=== PATIENT | female | born 1945 | race Caucasian/White ===

== ENCOUNTER 2021-01-08 22:53 | Outpatient (CLI) | payer MEDICARE, MEDICAID | END 2021-01-08 22:54 | disposition critical access hospital (66) | LOC: EMS 22:53 | DX: R05 Cough (principal); R11.10 Vomiting, unspecified; R53.83 Other fatigue | CPT/HCPCS: A0425; A0429 ==

== ENCOUNTER 2021-01-08 23:17 | Inpatient (IN) | payer MEDICARE, MEDICAID ==
[2021-01-08] MEDS ORDERED: PIPERACILLIN/TAZOBACTAM 4.5 GM in SODIUM CHLORIDE 0.9% MINIBAG 100 ML IV STA (23:27)
[2021-01-08] MEDS ORDERED: SODIUM CHLORIDE 0.9% 500 ML IV STA (23:28)
[2021-01-08] MEDS ORDERED: ACETAMINOPHEN 650 MG SUPP PR STA (23:29)
--- NOTE | 2021-01-08 23:30 | ED Physician Documentation ---
History of Present Illness - Stated complaint Stated Complaint: DECREASED LOC, FEVER, COUGH, VOMITING - Chief complaint Chief Complaint: General - History obtained from History obtained from: Patient - Additonal information Additional information: 75-year-old woman with past medical history of seizure disorder, wheelchair- bound secondary to spinal surgery several years ago, also with hypothyroidism, hyperlipidemia, Covid back in April (fully vaccinated), presents with cough over the past couple of weeks worsening over the past 2 days associated with fever today and 3 episodes of nonbloody nonbilious nausea and vomiting this evening. Patient was acting lethargic so her power of trademark attorney called EMS. Upon arrival her temp was 104 and she was 82% on room air improving to 99% on 4 L of oxygen. Fingerstick on scene normal. Patient ANO x3 in the emergency department stating that she has diffuse body aches but not complaining of discrete abdominal pain or diarrhea. Does endorse productive cough. Her power of trademark attorney is concerned that she had an aspiration event in the hospital 2 weeks ago when she had all of her teeth extracted. She states that she may have aspirated since that time as well. Note that patient normally gets her care at the [facility] in [place]. Review of Systems Ten Systems: 10 systems reviewed and negative Constitutional: reports: Fever, Chills, Myalgias, Fatigue Cardiac: denies: Chest pain / pressure Respiratory: reports: Dyspnea, Cough GI: reports: Nausea, Vomiting. denies: Abdominal Pain, Diarrhea PD PAST MEDICAL HISTORY - Present Medications Home Medications: Ambulatory Orders Medication Instructions Recorded Confirmed Atorvastatin Calcium 40 mg PO DAILY 01/09/21 01/09/21 Divalproex [Stephanie Humphreys] 250 mg PO DAILY 01/09/21 01/09/21 Levetiracetam [Keppra] 1,000 mg PO BID 01/09/21 01/09/21 Levetiracetam [Keppra] 500 mg PO BID 01/09/21 01/09/21 Levothyroxine Sodium 125 mcg PO DAILY 01/09/21 01/09/21 [Levothyroxine] Mirabegron [Myrbetriq] 50 mg PO DAILY 01/09/21 01/09/21 Solifenacin Succinate [Vesicare] 10 mg PO DAILY 01/09/21 01/09/21 Tolterodine [Detrol LA] 4 mg PO DAILY 01/09/21 01/09/21 - Allergies Allergies/Adverse Reactions: Allergies Allergy/AdvReac Type Severity Reaction Status Date / Time alendronate sodium Allergy Unknown Verified 01/09/21 00:01 [From Fosamax] phenobarbital Allergy Unknown Verified 01/09/21 00:01 prednisone Allergy Unknown Verified 01/09/21 00:01 Sulfa (Sulfonamide Allergy Unknown Verified 01/09/21 00:01 Antibiotics) Tetanus Vaccines and Toxoid Allergy Unknown Verified 01/09/21 00:01 PD ED PE NORMAL - Vitals Vital signs reviewed: Yes - General General: Alert and oriented X 3, Other (Slow to respond, uncomfortable appearing) - HEENT HEENT: Atraumatic, PERRL, EOMI, Moist mucous membranes, Pharynx benign - Neck Neck: Supple, no meningeal sign - Cardiac Cardiac: Other (Borderline tachycardic rate, regular rhythm) - Respiratory Respiratory: Other (Coarse breath sounds bilaterally. Mild Tachypnea) - Abdomen Abdomen: Non tender, Non distended - Derm Derm: Normal color, Warm and dry - Extremities Extremities: No deformity - Neuro Neuro: Alert and oriented X 3 - Psych Psych: Normal mood, Normal affect Results - Vitals Vitals: Vital Signs - 24 hr 01/08/21 01/08/21 01/08/21 23:21 23:30 23:54 Temperature 39.4 C H 39.9 C H Heart Rate 105 H 102 H Respiratory 27 H 20 Rate Blood Pressure 102/51 L 104/53 L O2 Saturation 96 84 L 95 01/09/21 01/09/21 01/09/21 00:01 00:22 00:23 Temperature Heart Rate 100 107 H 107 H Respiratory 20 13 20 Rate Blood Pressure 94/51 L 102/53 L 102/53 L O2 Saturation 96 97 99 01/09/21 01/09/21 01/09/21 00:30 01:04 01:30 Temperature 38.7 C H 37.9 C Heart Rate 100 98 98 Respiratory 23 16 15 Rate Blood Pressure 103/49 L 101/57 L 91/56 L O2 Saturation 96 98 98 01/09/21 01/09/21 01/09/21 01:34 02:00 02:29 Temperature 37.9 C 37.9 C Heart Rate 92 93 Respiratory 15 17 Rate Blood Pressure 89/58 L 95/49 L O2 Saturation 100 100 01/09/21 01/09/21 02:49 02:57 Temperature Heart Rate 89 90 Respiratory 17 16 Rate Blood Pressure O2 Saturation 97 100 Oxygen O2 Source Nasal cannula - Labs Labs: Laboratory Tests 01/08/21 01/08/21 01/08/21 01:30 23:30 23:30 WBC 4.2 L RBC 3.05 L Hgb 10.6 L Hct 32.6 L MCV 106.9 H MCH 34.8 H MCHC 32.5 RDW 13.2 Plt Count 103 L MPV 10.0 Neut # (Auto) 2.7 Lymph # (Auto) 1.1 L Carver # (Auto) 0.3 Eos # (Auto) 0.1 Baso # (Auto) 0.0 Absolute Nucleated RBC 0.00 Nucleated RBC % 0.0 VBG pH VBG pCO2 VBG pO2 VBG HCO3 VBG Total CO2 VBG O2 Saturation VBG Base Excess Sodium 134 L Potassium 4.3 Chloride 94 L Carbon Dioxide 28 Anion Gap 12.0 BUN 15 Creatinine 0.8 Estimated GFR (MDRD) 70 L Glucose 124 H Lactic Acid Calcium 8.9 Total Bilirubin 0.7 AST 23 ALT < 10 L Alkaline Phosphatase 42 Total Protein 5.9 L Albumin 3.3 Globulin 2.6 Albumin/Globulin Ratio 1.3 Urine Color YELLOW Urine Clarity SL. CLOUDY Urine pH 5.0 Ur Specific [place] 1.025 Urine Protein 30 H Urine Glucose (UA) NEGATIVE Urine Ketones 15 H Urine Occult Blood LARGE H Urine Nitrite NEGATIVE Urine Bilirubin NEGATIVE Urine Urobilinogen 0.2 (NORMAL) Ur Leukocyte Esterase NEGATIVE Urine RBC 6-10 H Urine WBC 0-3 Ur Squamous Epith Cells MOD Squamous H Amorphous Sediment Moderate Urine Bacteria Rare Urine Culture Comments NOT INDICATED Nasal Adenovirus (PCR) Nasal B. parapertussis DNA (PCR) Nasal Coronavir 229E PCR Nasal Coronavir HKU1 PCR Nasal Coronavir NL63 PCR Nasal Coronavir OC43 PCR Nasal Enterovir/Rhinovir PCR Nasal Influenza B PCR Nasal Influenza A PCR Nasal Parainfluen 1 PCR Nasal Parainfluen 2 PCR Nasal Parainfluen 3 PCR Nasal Parainfluen 4 PCR Nasal RSV (PCR) Nasal B.pertussis DNA PCR Nasal C.pneumoniae (PCR) Santos Human Metapneumo PCR Nasal M.pneumoniae (PCR) Nasal SARS-CoV-2 (PCR) 01/08/21 01/08/21 01/08/21 23:30 23:30 23:30 WBC RBC Hgb Hct MCV MCH MCHC RDW Plt Count MPV Neut # (Auto) Lymph # (Auto) Carver # (Auto) Eos # (Auto) Baso # (Auto) Absolute Nucleated RBC Nucleated RBC % VBG pH 7.368 VBG pCO2 53.9 H VBG pO2 26.9 VBG HCO3 30.3 H VBG Total CO2 32.0 H VBG O2 Saturation 48.5 L VBG Base Excess 4.0 H Sodium Potassium Chloride Carbon Dioxide Anion Gap BUN Creatinine Estimated GFR (MDRD) Glucose Lactic Acid 1.3 Calcium Total Bilirubin AST ALT Alkaline Phosphatase Total Protein Albumin Globulin Albumin/Globulin Ratio Urine Color Urine Clarity Urine pH Ur Specific [place] Urine Protein Urine Glucose (UA) Urine Ketones Urine Occult Blood Urine Nitrite Urine Bilirubin Urine Urobilinogen Ur Leukocyte Esterase Urine RBC Urine WBC Ur Squamous Epith Cells Amorphous Sediment Urine Bacteria Urine Culture Comments Nasal Adenovirus (PCR) NOT DETECTED Nasal B. parapertussis DNA (PCR) NOT DETECTED Nasal Coronavir 229E PCR NOT DETECTED Nasal Coronavir HKU1 PCR NOT DETECTED Nasal Coronavir NL63 PCR NOT DETECTED Nasal Coronavir OC43 PCR NOT DETECTED Nasal Enterovir/Rhinovir PCR NOT DETECTED Nasal Influenza B PCR NOT DETECTED Nasal Influenza A PCR NOT DETECTED Nasal Parainfluen 1 PCR NOT DETECTED Nasal Parainfluen 2 PCR NOT DETECTED Nasal Parainfluen 3 PCR NOT DETECTED Nasal Parainfluen 4 PCR NOT DETECTED Nasal RSV (PCR) NOT DETECTED Nasal B.pertussis DNA PCR NOT DETECTED Nasal C.pneumoniae (PCR) NOT DETECTED Santos Human Metapneumo PCR NOT DETECTED Nasal M.pneumoniae (PCR) NOT DETECTED Nasal SARS-CoV-2 (PCR) NOT DETECTED PD MEDICAL DECISION MAKING - ED course ED course: Upon arrival I have a high suspicion for sepsis in this patient. Given that she has been coughing more than usual, respiratory etiology is most likely. Suspect possible Covid vs pneumonia despite patient being vaccinated. Will give slow IVF for now. Heart rate improved status post IV fluids. antibiotics going in now . CXR concerning for pneumonia. also with appearance of intestinal contents in R hemidiaphragm,, with recommendation by radiology to obtain CT AP> CTAP "pseudopneumoperitoneum" with benign abdominal contents, but with BL LL PNA. d/w patient's POA Lynn [phone]. ordered DVT study BL LE per Dr Zhao request which was negative. admitted to medicine. Departure - Departure Disposition: 66 [facility] DC/Xfer Clinical Impression: Pneumonia, Cough, Shortness of breath, Anemia Condition: Stable
[2021-01-08 23:40] LABS: VBG HCO3 30.3 mmol/L (23-28); VBG OXYGEN SATURATION 48.5 % (60-80); VBG PCO2 53.9 mmHg (41-51); VBG PH 7.368 (7.31-7.41); VBG PO2 26.9 mmHg (25-47)
[2021-01-08 23:41] LABS: BASOPHILS % (AUTO) 0.2 %; EOSINOPHILS # (AUTO) 0.1 10^3/uL (0.0-0.7); EOSINOPHILS % (AUTO) 1.7 %; HCT - HEMATOCRIT 32.6 % (37.0-47.0); HGB - HEMOGLOBIN 10.6 g/dL (12.0-16.0); LYMPHOCYTES # (AUTO) 1.1 10^3/uL (1.5-3.5); LYMPHOCYTES % (AUTO) 25.3 %; MEAN CORPUSCULAR HEMOGLOBIN 34.8 pg (27.0-31.0); MEAN CORPUSCULAR HGB CONC 32.5 g/dL (32.0-36.0); MEAN CORPUSCULAR VOLUME 106.9 fL (81.0-99.0); MONOCYTES # (AUTO) 0.3 10^3/uL (0.0-1.0); MONOCYTES % (AUTO) 7.4 %; NEUTROPHILS # (AUTO) 2.7 10^3/uL (1.5-6.6); NEUTROPHILS % (AUTO) 65.4 %; PLT - PLATELET COUNT 103 10^3/uL (130-450); RED BLOOD COUNT 3.05 10^6/uL (4.20-5.40); RED CELL DISTRIBUTION WIDTH 13.2 % (12.0-15.0); WHITE BLOOD COUNT 4.2 x10^3/uL (4.8-10.8)
[2021-01-08 23:52] LABS: ALBUMIN 3.3 g/dL (3.2-5.5); ALBUMIN/GLOBULIN RATIO 1.3 (1.0-2.2); ALKALINE PHOSPHATASE 42 IU/L (42-121); ALT ALANINE AMINOTRANSFERASE < 10 IU/L (10-60); AST ASPARTATE AMINOTRANSFERASE 23 IU/L (10-42); BILIRUBIN,TOTAL 0.7 mg/dL (0.2-1.0); BUN - BLOOD UREA NITROGEN 15 mg/dL (6-20); CALCIUM 8.9 mg/dL (8.5-10.3); CARBON DIOXIDE - CO2 28 mmol/L (21-32); CHLORIDE 94 mmol/L (101-111); CREATININE 0.8 mg/dL (0.4-1.0); GFR - MDRD 70 (>89); GLUCOSE 124 mg/dL (70-100); POTASSIUM 4.3 mmol/L (3.5-5.0); SODIUM 134 mmol/L (135-145); TOTAL PROTEIN 5.9 g/dL (6.7-8.2)
[2021-01-09] MEDS ORDERED: VANCOMYCIN INJ 1.75 GM in SODIUM CHLORIDE 0.9% 500 ML IV STA (00:01)
[2021-01-09] MEDS ORDERED: VANCOMYCIN 1 GM VIAL ONE (00:08)
[2021-01-09 00:29] LABS: CORONAVIRUS 229E-RESP PCR NOT DETECTED
[2021-01-09 00:30] LABS: B. PARAPERTUSSIS- RESP PCR PAN NOT DETECTED; B. PERTUSSIS- RESP PCR PANEL NOT DETECTED; C. PNEUMONIAE- RESP PCR PANEL NOT DETECTED; CORONAVIRUS HKU1-RESP PCR NOT DETECTED; CORONAVIRUS NL63-RESP PCR NOT DETECTED; CORONAVIRUS OC43-RESP PCR NOT DETECTED; HUMAN METAPNEUMOVIRUS NOT DETECTED; INFLUENZA A- RESP PCR PANEL NOT DETECTED; INFLUENZA B - RESP PCR PANEL NOT DETECTED; M. PNEUMONIAE- RESP PCR PANEL NOT DETECTED; PARAINFLUENZA VIRUS 1 NOT DETECTED; PARAINFLUENZA VIRUS 2 NOT DETECTED; PARAINFLUENZA VIRUS 3 NOT DETECTED; PARAINFLUENZA VIRUS 4 NOT DETECTED; RHINOVIRUS/ENTEROVIRUS NOT DETECTED; RSV- RESP PCR PANEL NOT DETECTED; SARS-CoV-2 -RESP PCR PANEL NOT DETECTED
[2021-01-09] MEDS ORDERED: SODIUM CHLORIDE 0.9% 1,500 ML IV STA (00:54)
[2021-01-09] MEDS ORDERED: PANTOPRAZOLE 40 MG VIAL IV STA (00:55)
[2021-01-09] MEDS ORDERED: IOPAMIDOL-300 50 ML VIAL ONE (00:58)
[2021-01-09 01:37] LABS: BILIRUBIN,URINE NEGATIVE (NEGATIVE); GLUCOSE, URINE (UA) NEGATIVE (NEGATIVE); KETONES,URINE (UA) 15 mg/dL (NEGATIVE); LEUKOCYTE ESTERASE, URINE NEGATIVE (NEGATIVE); NITRITE,URINE NEGATIVE (NEGATIVE); OCCULT BLOOD,URINE LARGE (NEGATIVE); PROTEIN,URINE 30 mg/dL (NEGATIVE); UROBILINOGEN,URINE 0.2 (NORMAL) E.U./dL (NORMAL)
[2021-01-09] MEDS ORDERED: IOPAMIDOL-300 50 ML VIAL PO ONE (01:37)
[2021-01-09 01:38] LABS: CLARITY,URINE SL. CLOUDY (CLEAR)
[2021-01-09 01:43] LABS: AMORPHOUS SEDIMENT,UR Moderate /LPF; BACTERIA,URINE Rare /HPF (None Seen); SQUAMOUS EPITHELIAL CELL,UR MOD Squamous (<= Few); WBC,URINE 0-3 /HPF (0-5)
[2021-01-09] MEDS ORDERED: SODIUM CHLORIDE 0.9% 500 ML IV STA (02:32)
[2021-01-09] MEDS ORDERED: SODIUM CHLORIDE 0.9% 1,000 ML IV STA (03:03)
[2021-01-09] MEDS ORDERED: SODIUM CHLORIDE FLUSH 0.9% 10 ML SYRINGE IVP PRN (03:04)
[2021-01-09] MEDS ORDERED: ONDANSETRON 4 MG/2 ML VIAL IVP PRN (03:04)
[2021-01-09] MEDS ORDERED: ACETAMINOPHEN 325 MG TABLET PO PRN (03:04)
[2021-01-09] MEDS ORDERED: PIPERACILLIN/TAZOBACTAM 3.375 GM in SODIUM CHLORIDE 0.9% MINIBAG 100 ML IV SCH (04:00)
[2021-01-09] MEDS: LACTATED RINGERS 1,000 ML IV SCH ×2 (04:24→16:52)
[2021-01-09] MEDS: metroNIDAZOLE 500 MG/100 ML 500 MG/100 ML BAG IV SCH ×3 (04:24→20:46)
[2021-01-09] MEDS: levoFLOXacin 750 MG/150 ML 750 MG/150 ML BAG IV SCH (04:40)
[2021-01-09 05:28] LABS: BASOPHILS % (AUTO) 0.3 %; EOSINOPHILS # (AUTO) 0.1 10^3/uL (0.0-0.7); HCT - HEMATOCRIT 28.4 % (37.0-47.0); HGB - HEMOGLOBIN 8.9 g/dL (12.0-16.0); LYMPHOCYTES # (AUTO) 0.9 10^3/uL (1.5-3.5); LYMPHOCYTES % (AUTO) 13.8 %; MEAN CORPUSCULAR HEMOGLOBIN 34.2 pg (27.0-31.0); MEAN CORPUSCULAR HGB CONC 31.3 g/dL (32.0-36.0); MEAN CORPUSCULAR VOLUME 109.2 fL (81.0-99.0); MEAN PLATELET VOLUME 10.4 fL (7.9-10.8); MONOCYTES # (AUTO) 0.9 10^3/uL (0.0-1.0); MONOCYTES % (AUTO) 14.4 %; NEUTROPHILS # (AUTO) 4.4 10^3/uL (1.5-6.6); NEUTROPHILS % (AUTO) 69.2 %; PLT - PLATELET COUNT 86 10^3/uL (130-450); RED CELL DISTRIBUTION WIDTH 13.2 % (12.0-15.0); WHITE BLOOD COUNT 6.4 x10^3/uL (4.8-10.8)
[2021-01-09 05:35] LABS: CALCIUM 8.2 mg/dL (8.5-10.3); CREATININE 0.8 mg/dL (0.4-1.0); MAGNESIUM 1.8 mg/dL (1.7-2.8)
--- NOTE | 2021-01-09 06:55 | HISTORY & PHYSICAL EXAMINATION ---
Chief Complaint - Chief Complaint Chief Complaint: Cough and chills. History of Present Illness - Admitted From Admitted From:: Home - History Obtained From Records Reviewed: Yes History obtained from: Patient, Patient's frined (Lynn), ER Physician, EMR Exam Limitations: Patient is altered and so history is limited. - History of Present Illness HPI Comment/Other: This is a 75-year-old female with past medical history significant for epilepsy, hypothyroidism, chronic back pain who presents complaining of cough and chills. Most of the history is obtained from the patient's friend, Lynn, who is her POA. Lynn tells me that the patient had a dental procedure about 2 weeks ago where she had all of her teeth removed and dentures were placed. She states after the procedure, she had an episode where she aspirated and required to be hospitalized and treated with antibiotics. She tells me the patient has a history of seizures that are usually well controlled but during that aspiration event, the patient also had a seizure but this was different than her usual seizures as it was a generalized tonic-clonic seizure. After being discharged from after a few days, she had been home and was on a strict liquid diet. It was noticed that the patient's appetite had decreased over the past 2 to 3 days and she has had multiple coughing episodes and she was concerned the patient may have continued to aspirate. Yesterday evening, the patient went to sleep at around 5:30 PM due to her chronic back pain and woke up at around 8 PM and was noted to be confused and complaining of chills. Given the change in her mental status, MD called EMS. When he does not the patient was hospitalized back in April 2020 with [facility] at for about 5 days. The patient has since been vaccinated. The patient herself denies any chest pain, dyspnea. She does complain of a cough. She reports no headache, change in vision, neck pain. She complains of back pain throughout her spine. She reports no abdominal pain, nausea, vomiting although Lynn told me that patient did vomit yesterday evening. She also denies dysuria, urgency, hematuria. Lynn to me that she also noticed that the patient's lower extremities were edematous yesterday evening. The patient does have a history of DVT with the most recent being about 10 years ago. It was reportedly after a surgical intervention and so it was considered provoked. Lynn tells me the patient has been wheelchair-bound since a spine surgery in 2018. Here in our emergency department, she was noted to be febrile with a temperature of 39.4 C. She is tachycardic with a heart rate in the 100s. Her blood pressure is 102/51. She was tachypneic and was saturating 84% on room air. This improved to 96% on 4 L of oxygen via nasal cannula. Labs were significant for a white count of 4.2 and platelet count of 103. Her urinalysis was a dirty catch. Respiratory PCR panel was unremarkable. Chest x-ray revealed an elevated right diaphragm without obvious pneumonia. There was concern for potential pneumoperitoneum and so a CT of the abdomen pelvis was obtained which showed that this was likely just pseudopneumoperitoneum as the bowel was overlying the liver. CT did also reveal bilateral lower lobe infiltrates concerning for pneumonia. The patient received vancomycin and Zosyn in the emergency department. I did discuss goals of care with the patient and she states that she would like to be a full code. I also spoke with Lynn regarding this who is reportedly the patient's POA and she also confirmed that the patient is a full code. History - Past Medical History Cardiovascular: reports: Hypertension, Deep vein thrombosis Neuro: reports: Seizure disorder Endocrine/Autoimmune: reports: HyPOthyroidism GI: reports: Chronic constipation : reports: Incontinence Psych: reports: None Musculoskeletal: reports: Osteoarthritis, Chronic back pain MRSA Hx?: No - Past Surgical History Ortho: reports: Hip replacement, Knee replacement, Spine surgery HEENT: reports: Cataracts - Family & Social History Family History Comment/Other: The patient denies any significant family history although she is altered so not sure how accurate this is. Living arrangement: At home Living Situation: With friend(s) Social History Notes: The patient lives in between [place] and [facility] with her friend, Lynn. She denies smoking or alcohol use. - POLST Patient has POLST: No Meds/Allgy - Home Medications Home Medications: Ambulatory Orders Medication Instructions Recorded Confirmed Atorvastatin Calcium 40 mg PO DAILY 01/09/21 01/09/[address] [Depakote Dr] 250 mg PO DAILY 01/09/21 01/09/21 Levetiracetam [Keppra] 1,000 mg PO BID 01/09/21 01/09/21 Levetiracetam [Keppra] 500 mg PO BID 01/09/21 01/09/21 Levothyroxine Sodium 125 mcg PO DAILY 01/09/21 01/09/21 [Levothyroxine] Mirabegron [Myrbetriq] 50 mg PO DAILY 01/09/21 01/09/21 Solifenacin Succinate [Vesicare] 10 mg PO DAILY 01/09/21 01/09/21 Tolterodine [Detrol LA] 4 mg PO DAILY 01/09/21 01/09/21 - Allergies Allergies/Adverse Reactions: Allergies Allergy/AdvReac Type Severity Reaction Status Date / Time alendronate sodium Allergy Unknown Verified 01/09/21 00:01 [From Fosamax] phenobarbital Allergy Unknown Verified 01/09/21 00:01 prednisone Allergy Unknown Verified 01/09/21 00:01 Sulfa (Sulfonamide Allergy Unknown Verified 01/09/21 00:01 Antibiotics) Tetanus Vaccines and Toxoid Allergy Unknown Verified 01/09/21 00:01 Review of Systems - Constitutional Constitutional: reports: Fatigue, Chills, Malaise, Poor appetite. denies: Fever - Eyes Eyes: denies: Blurred vision, Vision loss - Ears, Nose & Throat Ears, Nose & Throat: denies: Nasal discharge, Nasal congestion - Cardiovascular Cariovascular: denies: Chest pain, Exertional dyspnea, Decr. exercise tolerance - Respiratory Respiratory: reports: Cough. denies: Sputum production, SOB at rest, SOB with exertion - Gastrointestinal Gastrointestinal: denies: Abdominal pain, Nausea, Vomiting - Genitourinary Genitourinary: denies: Dysuria, Frequency, Urgency, Hematuria - Musculoskeletal Musculoskeletal: reports: Back pain, Limited range of motion, Muscle weakness - Integumentary Integumentary: denies: Rash - Neurological Neurological: reports: Pre-existing deficit, Abnormal gait. denies: Dizziness, Numbness - Hematologic/Lymphatic Hematologic/Lymphatic: denies: Bleeding tendencies - All Other Systems All Other Systems: reports: Reviewed and negative (Review of systems may be inaccurate given the patient answered "no" to most of them and she is altered.) Prior Level of Functionality: The patient ambulates with a wheelchair at baseline due to her chronic back pain and left foot drop. Exam - Vital Signs Reviewed Vital Signs: Yes Vital Signs: Vital Signs x48h Temp Pulse Pulse Resp BP BP Pulse Ox 01/09/21 05:55 36.9 C 88 12 96 01/09/21 04:10 36.9 C 88 12 102/46 L 96 01/09/21 04:00 99.6 C H 01/09/21 03:33 38.2 C H 87 14 83/49 L 97 01/09/21 03:20 90 14 88/50 L 98 01/09/21 02:57 90 16 100 01/09/21 02:49 89 17 97 01/09/21 02:29 93 17 95/49 L 100 01/09/21 02:00 37.9 C 92 15 89/58 L 100 01/09/21 01:34 37.9 C 01/09/21 01:30 37.9 C 98 15 91/56 L 98 01/09/21 01:04 98 16 101/57 L 98 01/09/21 00:30 38.7 C H 100 23 103/49 L 96 01/09/21 00:23 107 H 20 102/53 L 99 01/09/21 00:22 107 H 13 102/53 L 97 01/09/21 00:01 100 20 94/51 L 96 01/08/21 23:54 39.9 C H 102 H 20 104/53 L 95 01/08/21 23:30 84 L 01/08/21 23:21 39.4 C H 105 H 27 H 102/51 L 96 - Physical Exam General Appearance: positive: Other (She does appear lethargic and in mild to moderate distress. She will open her eyes to answer questions but quickly fall back to sleep) Eyes Bilateral: positive: PERRL, Conjunctivae nml ENT: positive: Dry mucous membranes, Other (Nasal cannula in place.). negative: No signs of dehydration Neck: positive: Nml inspection Respiratory: positive: No respiratory distress, Other (She is not in distress but is somewhat tachypneic with respiratory in the low 20s. She has rhonchi in the bilateral lung morocho.) Cardiovascular: positive: Tachycardia. negative: Irregularly irregular, Bradycardia, Systolic murmur Abdomen: positive: Nml bowel sounds, Tenderness (Mild tenderness in the epigastric region). negative: Guarding, Rebound Back: positive: Other (She has spinal tenderness throughout her thoracic spine down to her lumbar spine.) Skin: positive: Warm, Dry Extremities: positive: Pedal edema (She has +2 pitting edema in the right lower extremity and trace to +1 in the dorsum of the left foot.) Neurologic/Psychiatric: positive: Sensation nml, Other (She is able to move all 4 extremities although the left lower extremity is about 2 out of 5 motor strength which is her baseline.). negative: Disoriented to person, Disoriented to place, Disoriented to time (She is oriented to the year but not to month but Lynn tells me this is not unusual for her.) Sepsis Event Note (H) - Evaluation Current Stage of Sepsis: Sepsis Possible source of Sepsis: positive: Pulmonary - Sepsis Criteria Sepsis Criteria: Recorded Temperature greater than 38.3C or Less than 36C, Recorded Heart Rate greater than 90 bpm, Recorded Respiratory Rate greater than 20, Respiratory: Increasing oxygen requirements, CHEMICAL PROCESS OPERATOR: altered consciousness (unrelated to primary neuro pathology) Conclusion/Plan - Problem List (1) Acute respiratory failure with hypoxia Conclusion/Plan: This is secondary to pneumonia. She was saturating in the mid 80s on room air and required 4 L of oxygen to maintain oxygen saturation of 95%. Although x-ray revealed no obvious infiltrate, CT did reveal bilateral infiltrates and given her history, concern for potential aspiration. Respiratory PCR panel is unremarkable. We will start her on Levaquin and Flagyl and continue with supplemental oxygen for goal saturation greater than 92%. Tessalon as needed for cough. (2) Sepsis Conclusion/Plan: This appears to be secondary to the pneumonia. She presented with a fever, tachycardia, change in mental status. CT revealed bilateral infiltrates concerning for pneumonia and given the history the concern is for potential aspiration. Her urinalysis was a dirty catch but she has not had symptoms of a urinary tract infection. Although she does complain of back pain, per history from her friend, Lynn, this appears to be chronic for the patient. We will start her on Levaquin and Flagyl IV empirically for pneumonia to cover for community-acquired pneumonia as well as aspiration pneumonia. We will follow up blood cultures. (3) Pneumonia Conclusion/Plan: The concern is for potential aspiration pneumonia given the history although this could also be community-acquired pneumonia. Respiratory PCR panel was unremarkable. She is requiring supplemental oxygen as mentioned above. We will start her on Levaquin and Flagyl to cover for community-acquired pneumonia as well as possible aspiration. We will continue supplemental oxygen for goal saturation greater than 92%. If she remains hospitalized until Monday, we will obtain a speech evaluation. (4) Altered mental status Conclusion/Plan: Although she is oriented to self, location, year, she does appear confused and altered compared to her baseline and this was confirmed by her friend, Lynn. Suspect this is related to the sepsis and underlying infection. She has no focal deficits to suggest stroke at this time. We will treat her underlying infection with IV antibiotics and hydrated with IV fluids. Avoid sedatives and we will reassess her neuro status. (5) Bilateral lower extremity edema Conclusion/Plan: She has bilateral lower extremity edema which is much more profound in the right lower extremity edema. Given her history of DVT affect that she is wheelchair- bound, we will order a duplex of the lower extremities to evaluate for DVT. In the interim we will have her on Lovenox for DVT prophylaxis and hold off on SCDs. (6) Thrombocytopenia Conclusion/Plan: Her platelet count was initially 103 and has since decreased to 86. Suspect likely related to sepsis and ongoing infection. We do not have prior labs to compare to so unsure if she is chronically is thrombocytopenic or not. We will continue Lovenox in the interim for DVT prophylaxis but if her platelet count continues to decrease that we will need to discontinue this. (7) Epilepsy Conclusion/Plan: She has a history of epilepsy and is on Keppra and Depakote. We will continue both of these and will consider IV if she has difficulty taking p.o. (8) Chronic back pain Conclusion/Plan: She has chronic back pain which unfortunately after her most recent procedure in 2018, has led to her being quite physically debilitated. She is now predomi nantly wheelchair-bound. She is on meloxicam at home which we will continue along with Tylenol as needed. (9) Hypothyroidism Conclusion/Plan: We will continue her home Synthroid. - Lab Results Lab results reviewed: Yes Fish Bones: 01/09/21 05:12 01/09/21 11:55 - Diagnostic Imaging Results Diagnostic Imaging Results: positive: Prelim report reviewed - EKG Results EKG Interpreted Independently: Yes EKG Comparison: No prior EKG EKG Findings: EKG revealed sinus tachycardia with nonspecific ST segment changes. There is quite a bit of artifact in leads I, 3, aVL. Core Measures - Anticipated LOS I expect patient to be DC'd or transferred within 96 hours.: Yes - Issues Hospital Issues and Management Plan: 75-year-old female presents with chills and cough found to have sepsis likely secondary to pneumonia with concern for aspiration. She will be admitted for IV antibiotics and supplemental oxygen. - DVT/VTE - Prophylaxis VTE/DVT Device ordered at admit?: No VTE/DVT Prophylaxis med ordered at admit?: Yes
--- NOTE | 2021-01-09 07:03 | PHARMACY PROGRESS NOTE ---
- Best Possible Medication History Admit Date and Time: 01/09/21 0304 Processed by: Nursing Medication History completed: Yes Patient Interview: Completed (COMPLETED BY DALIA) As the person ultimately responsible for medication therapy, providers are able to order a medication from an existing home medication list in [facility] via the "Reconcile Routine" prior to Confirmation of that medication by customer support associate. Such practice is discouraged except when the physician, in their clinical judgment, deems that a medical need exists for a medication without regard to previous use.
[2021-01-09] MEDS ORDERED: BENZONATATE 100 MG CAPSULE PO PRN (07:04)
[2021-01-09] MEDS: ENOXAPARIN 40 MG/0.4 ML SYRINGE SUBQ SCH (07:21)
--- NOTE | 2021-01-09 07:29 | Ultrasound Report ---
PROCEDURE: Duplex Ext Veins Bilateral INDICATIONS: DANIELITO KINCAIDING TECHNIQUE: Real-time imaging, as well as color and pulse Doppler interrogation, were performed of the deep veins of both legs from the inguinal ligament to the popliteal fossa. COMPARISON: None FINDINGS: The deep veins are normally compressible, and free of intraluminal thrombus. Color and pu lse Doppler demonstrate normal phasic intravascular flow. There is normal augmentation response to d istal compression maneuver. IMPRESSION: No sonographic evidence of DVT. No significant change from preliminary report. Reviewed by: Shivam Medeiros MD on 01/09/2021 7:27 AM PDT Approved by: Shivam Medeiros MD on 01/09/2021 7:27 AM PDT Station ID: [id number]
[2021-01-09] MEDS: DIVALPROEX DR 250 MG TABLET PO SCH (08:32)
[2021-01-09] MEDS: MELOXICAM 7.5 MG TABLET PO SCH (08:32)
[2021-01-09] MEDS: SODIUM CHLORIDE FLUSH 0.9% 10 ML SYRINGE IVP SCH ×2 (08:39→20:46)
--- NOTE | 2021-01-09 08:59 | CT Report ---
PROCEDURE: Abdomen/Pelvis W INDICATIONS: abnormal CXR. nontender abdomen CONTRAST: IV CONTRAST: Isovue 300 ml: 100 PO CONTRAST: *NO PO CONTRAST TECHNIQUE: After the administration of IV contrast, 5 mm thick sections acquired from the diaphragms to the symp hysis. 5 mm thick coronal and sagittal reformats were acquired. For radiation dose reduction, the f ollowing was used: automated exposure control, adjustment of mA and/or kV according to patient size. COMPARISON: Relation is made with the accompanying chest radiograph, 01/08/2021 FINDINGS: Image quality: There is artifact associated with the metallic hardware. ABDOMEN: Lung bases: Small bilateral pleural effusions are seen, with overlying atelectasis. Heart size is nor mal. Solid organs: Liver and spleen are normal in size and enhancement. Gallbladder wall does not appear thickened. Biliary system is non dilated. Pancreas enhances normally. No adrenal nodules. Kidn eys demonstrate normal size and enhancement, without hydronephrosis. There are simple appearing cyst s of the left kidney, with the largest seen anteriorly measuring 5 cm. Peritoneum and bowel: There is made that the right colon is seen anterior and superior to the liver, adjacent to the diaphragm. There is a moderate amount of stool seen within the colon. Bowel loops de monstrate normal wall thickness and caliber. No free fluid or air. Nodes and vessels: No retroperitoneal or mesenteric adenopathy by size criteria. Aorta and inferior vena cava are normal in size. Miscellaneous: No ventral hernias. PELVIS: Genitourinary: There is a bladder catheter seen, which decompresses the bladder. Miscellaneous: No inguinal hernias or adenopathy. Bones: Right hip arthroplasty hardware can be seen. Thoracolumbar fixation hardware is seen. Remote fractures of the right pelvis can be seen. No suspicious bony lesions. No vertebral body compression fractures. Degenerative changes are seen throughout, which are worst involving the lower lumbar spi ne. Mild levoconvex scoliotic curvature is seen. IMPRESSION: There are small bilateral pleural effusions, with overlying atelectasis. There is a moderate amount of stool seen within the colon. Please correlate with clinical constipatio n. Incidental note is made of: Thoracolumbar fixation hardware Simple appearing left renal cysts Right hip arthroplasty hardware Bladder catheter Remote fractures of the right pelvis Note: No significant discrepancy from the preliminary report. Reviewed by: Edgardo Bernstein MD on 01/09/2021 7:58 AM ERASMO Approved by: Edgardo Bernstein MD on 01/09/2021 7:58 AM ERASMO Station ID: [id number]
[2021-01-09] MEDS ORDERED: levETIRAcetam INJ 1,500 MG in SODIUM CHLORIDE 0.9% 100ML 100 ML IV SCH (09:00)
--- NOTE | 2021-01-09 09:02 | XRAY Report ---
PROCEDURE: Chest 1 View X-Ray INDICATIONS: Shortness of breath, cough, fever TECHNIQUE: One view of the chest was acquired. COMPARISON: Correlation is made with the accompanying abdomen pelvis CT, 01/09/2021. FINDINGS: Surgical changes and devices: Thoracal lumbar fixation hardware is seen. Lungs and pleura: No pleural effusions or pneumothorax. Streaky opacities can be seen at the lung b ases. There is elevation of the right hemidiaphragm. Mediastinum: Mediastinal contours appear normal. Heart size is normal. Bones and chest wall: Age-appropriate degenerative changes are seen. No suspicious bony lesions. O verlying soft tissues appear unremarkable. The right colon is high riding. There is no pneumoperiton eum. This is better seen on the subsequently performed CT examination. IMPRESSION: High riding right colon. No pneumoperitoneum is seen, which is better characterized on the subsequent ly performed CT examination. Elevation of the right hemidiaphragm. Likely atelectasis at the lung bases. Note: No significant discrepancy from the preliminary report, when considered together with the preli minary report of the abdomen and pelvis CT. Reviewed by: Edgardo Bernstein MD on 01/09/2021 8:01 AM ERASMO Approved by: Edgardo Bernstein MD on 01/09/2021 8:01 AM ERASMO Station ID: [id number]
[2021-01-09 09:05] LABS: FOLATE > 49.60 ng/mL (5.90 - >24.8)
[2021-01-09 12:08] LABS: CALCIUM 7.7 mg/dL (8.5-10.3); CREATININE 0.7 mg/dL (0.4-1.0); POTASSIUM 4.2 mmol/L (3.5-5.0)
[2021-01-09 15:02] LABS: ALBUMIN 2.3 g/dL (3.2-5.5); ALKALINE PHOSPHATASE 28 IU/L (42-121); ALT ALANINE AMINOTRANSFERASE < 10 IU/L (10-60); AST ASPARTATE AMINOTRANSFERASE 20 IU/L (10-42); BILIRUBIN,TOTAL 0.7 mg/dL (0.2-1.0); TOTAL PROTEIN 4.5 g/dL (6.7-8.2)
[2021-01-09] MEDS: levETIRAcetam 500 MG/5 ML UDC PO SCH (20:49)
[2021-01-09] MEDS ORDERED: ATORVASTATIN 40 MG TABLET PO SCH (21:00)
[2021-01-09] MEDS: ACETAMINOPHEN/CODEINE 300 MG/30 MG TABLET PO PRN (22:10)
[2021-01-10] MEDS: SODIUM CHLORIDE FLUSH 0.9% 10 ML SYRINGE IVP SCH ×2 (00:59→08:11)
[2021-01-10] MEDS: ACETAMINOPHEN/CODEINE 300 MG/30 MG TABLET PO PRN (02:24)
[2021-01-10] MEDS: levoFLOXacin 750 MG/150 ML 750 MG/150 ML BAG IV SCH (03:14)
[2021-01-10] MEDS: metroNIDAZOLE 500 MG/100 ML 500 MG/100 ML BAG IV SCH ×2 (03:19→14:34)
[2021-01-10 05:43] LABS: BASOPHILS % (AUTO) 0.4 %; EOSINOPHILS # (AUTO) 0.1 10^3/uL (0.0-0.7); EOSINOPHILS % (AUTO) 1.7 %; HCT - HEMATOCRIT 23.9 % (37.0-47.0); HGB - HEMOGLOBIN 7.7 g/dL (12.0-16.0); LYMPHOCYTES # (AUTO) 1.4 10^3/uL (1.5-3.5); LYMPHOCYTES % (AUTO) 26.7 %; MEAN CORPUSCULAR HEMOGLOBIN 34.8 pg (27.0-31.0); MEAN CORPUSCULAR HGB CONC 32.2 g/dL (32.0-36.0); MEAN CORPUSCULAR VOLUME 108.1 fL (81.0-99.0); MEAN PLATELET VOLUME 10.1 fL (7.9-10.8); MONOCYTES # (AUTO) 0.5 10^3/uL (0.0-1.0); MONOCYTES % (AUTO) 9.8 %; NEUTROPHILS # (AUTO) 3.3 10^3/uL (1.5-6.6); NEUTROPHILS % (AUTO) 61.2 %; PLT - PLATELET COUNT 68 10^3/uL (130-450); RED BLOOD COUNT 2.21 10^6/uL (4.20-5.40); RED CELL DISTRIBUTION WIDTH 12.8 % (12.0-15.0); WHITE BLOOD COUNT 5.4 x10^3/uL (4.8-10.8)
[2021-01-10 05:52] LABS: CALCIUM 8.1 mg/dL (8.5-10.3); CREATININE 0.5 mg/dL (0.4-1.0); MAGNESIUM 1.7 mg/dL (1.7-2.8); POTASSIUM 3.4 mmol/L (3.5-5.0)
[2021-01-10] MEDS: ENOXAPARIN 40 MG/0.4 ML SYRINGE SUBQ SCH (06:12)
[2021-01-10] MEDS ORDERED: LEVOTHYROXINE 125 MCG TABLET PO SCH (07:00)
[2021-01-10] MEDS: DIVALPROEX DR 250 MG TABLET PO SCH (08:10)
[2021-01-10] MEDS: POTASSIUM CHLORIDE 20 MEQ/15 ML UDC PO SCH ×2 (08:10→08:38)
[2021-01-10] MEDS: MELOXICAM 7.5 MG TABLET PO SCH (08:10)
[2021-01-10] MEDS: levETIRAcetam 500 MG/5 ML UDC PO SCH (08:11)
[2021-01-10] MEDS ORDERED: levETIRAcetam 250 MG TABLET PO SCH (09:00)
[2021-01-10] MEDS ORDERED: POTASSIUM CHLORIDE 20 MEQ TABLET PO SCH (09:00)
--- NOTE | 2021-01-10 10:55 | Discharge Plan ---
Discharge Plan Problem Reviewed?: Yes Disposition: Home Health Service Condition: Fair Prescriptions: metroNIDAZOLE [Flagyl] 500 mg PO Q8H #30 tablet levoFLOXacin [Levaquin] 500 mg PO DAILY #10 tablet Diet: Soft (mechanical) Activity Restrictions: Activity as Tolerated Shower Restrictions: No Driving Restrictions: Yes (no driving) Assistance Devices: Wheelchair Instruction Topics: Epilepsy Dx, Anemia, Pneumonia, Pneumonia Tx, Sepsis Health Concerns: You presented to our hospital with chills and cough. The cough is very thick and phlegmy. You have a history of Covid pneumonia in April into May of this last year. You then had your teeth removed and suffered a consequence of aspiration pneumonia during the intraoperative phase of having your teeth removed. That was the most recent event and you have had a hard time recovering. You lost a lot of weight this year. You are chronically malnourished. With us, your lab work shows a total protein level of 4.5. Normal is 6.7-8.2. Albumin is 2.3. Normal is 3.2 and up to 5.5. Your weight is 74.5 kg. In our emergency room we found you to be very weak, malnourished elderly female with probable pneumonia. Your chest x-ray was negative but your CAT scan of your abdomen shows you to have compressive pneumonia of both lung bases. We started you on Levaquin and Flagyl. One antibiotic is for regular community- acquired pneumonia, and the Flagyl is for someone who is had aspiration pneumonia. While here, you asked me about your white cell count level. You stated that your primary care provider is watching you for a low white cell count. Your white cell count was low when you first came in at 4.2. But for the next 2 days you were normal at 6.4 and 5.4. You are anemic, and your platelets are low. Your primary care provider is evaluating you for this. We discussed myelodysplastic syndrome, and we also discussed that valproic acid (one of your seizure drugs) can also suppress your bone marrow. Plan of Treatment: Please see your primary care provider, Charlotte Lee MD, in the next 1 to 2 weeks. Have you a copy of this note with you so she can read it and understand what our instructions to you were. Complete antibiotics with Levaquin and Flagyl. Take a probiotic every day. The probiotic is [id number]. This will help prevent some of the diarrhea and bowel disruption you get from taking antibiotics every day. I am recommending you get home health with physical therapy and Occupational Therapy. You have lost quite a bit of strength. At this point you are bedbound and can barely get herself up to a sitting position to then transfer to a wheelchair. You need 2 people to help you to do that. You are at risk for skin breakdown over the parts of your body that are constantly sitting. That would be your tailbone, lateral hip bones, and your buttock. Make sure you are constantly rotating around so as not to lay in one position for too long. Care Goals: To complete therapy for pneumonia. To get back your usual strength that allows you to transfer without any help from bed to a wheel chair, we will chair to the toilet, or to get up and walk 1 or 2 steps. To get your nutrition back up to normal. Assessment: The patient and her partner Lynn are in line with trying to get these care goals accomplished. They will follow through with the appropriate agencies to make it happen. Follow-Up Care: Home Health - RN, Home Health - PT, Home Health - OT No Smoking: If you smoke, Please STOP! Call for help. Follow-up with: Delaney Lee MD [Physician No Access] -
--- NOTE | 2021-01-10 12:08 | DISCHARGE SUMMARY ---
"Discharge Summary Admit Date: 01/09/21 Discharge Date: 01/10/21 Discharging Provider: Cecily Madden MD Primary Care Provider: Delaney Lee MD Code Status: Attempt Resuscitation Condition at Discharge: Fair Discharge Disposition: 06 Home Health Service - DIAGNOSES Discharge Diagnoses with Status of Each Condition: 1. Acute respiratory failure with hypoxia 2. Sepsis 3. Pneumonia, most likely aspiration 4. Altered mental status 5. Bilateral lower extremity edema 6. Pancytopenia 7. Seizure disorder 8. Chronic back pain 9. Wheelchair-bound 10. Hypothyroidism - HPI History of Present Illness: This is a 75-year-old female with past medical history significant for epilepsy, hypothyroidism, chronic back pain who presents complaining of cough and chills. Most of the history is obtained from the patient's friend, Lynn, who is her POA. Lynn tells me that the patient had a dental procedure about 2 weeks ago where she had all of her teeth removed and dentures were placed. She states after the procedure, she had an episode where she aspirated and required to be hospitalized and treated with antibiotics. She tells me the patient has a history of seizures that are usually well controlled but during that aspiration event, the patient also had a seizure but this was different than her usual seizures as it was a generalized tonic-clonic seizure. After being discharged from [facility] after a few days, she had been home and was on a strict liquid diet. It was noticed that the patient's appetite had decreased over the past 2 to 3 days and she has had multiple coughing episodes and she was concerned the patient may have continued to aspirate. Yesterday evening, the patient went to sleep at around 5:30 PM due to her chronic back pain and woke up at around 8 PM and was noted to be confused and complaining of chills. Given the change in her mental status, called EMS. When he does not the patient was hospitalized back in April 2020 with Feliciano at [facility] for about 5 days. The patient has since been vaccinated. The patient herself denies any chest pain, dyspnea. She does complain of a cough. She reports no headache, change in vision, neck pain. She complains of back pain throughout her spine. She reports no abdominal pain, nausea, vomiting although Lynn told me that patient did vomit yesterday evening. She also denies dysuria, urgency, hematuria. Lynn to me that she also noticed that the patient's lower extremities were edematous yesterday evening. The patient does have a history of DVT with the most recent being about 10 years ago. It was reportedly after a surgical intervention and so it was considered provoked. Lynn tells me the patient has been wheelchair-bound since a spine surgery in 2018. Here in our emergency department, she was noted to be febrile with a temperature of 39.4 C. She is tachycardic with a heart rate in the 100s. Her blood pressure is 102/51. She was tachypneic and was saturating 84% on room air. This improved to 96% on 4 L of oxygen via nasal cannula. Labs were significant for a white count of 4.2 and platelet count of 103. Her urinalysis was a dirty catch. Respiratory PCR panel was unremarkable. Chest x-ray revealed an elevated right diaphragm without obvious pneumonia. There was concern for potential pneumoperitoneum and so a CT of the abdomen pelvis was obtained which showed that this was likely just pseudopneumoperitoneum as the bowel was overlying the liver. CT did also reveal bilateral lower lobe infiltrates concerning for pneumonia. The patient received vancomycin and Zosyn in the emergency department. I did discuss goals of care with the patient and she states that she would like to be a full code. I also spoke with Lynn regarding this who is reportedly the patient's POA and she also confirmed that the patient is a full code. - Past Medical History Cardiovascular: reports: Hypertension, Deep vein thrombosis Neuro: reports: Seizure disorder Endocrine/Autoimmune: reports: HyPOthyroidism GI: reports: Chronic constipation : reports: Incontinence Psych: reports: None Musculoskeletal: reports: Osteoarthritis, Chronic back pain MRSA Hx?: No - Past Surgical History Ortho: reports: Hip replacement, Knee replacement, Spine surgery HEENT: reports: Cataracts - CONSULTS | PROCEDURES Procedures: Venous duplex of the legs done for leg edema have no sonographic evidence of DVT Abdomen pelvis and CT done because of abnormal appearance of air under the diaphragm on chest x-ray shows her to have a right colon that is anterior and superior to the liver, adjacent to the diaphragm. Moderate amount of stool seen within the colon. This is the air being seen on chest x-ray. Small bilateral pleural effusions, overlying atelectasis. Thoracolumbar fixation hardware, simple appearing left renal cyst, right hip arthroplasty hardware, bladder catheter and remote fractures of the right pelvis seen Chest x-ray with high riding right colon. Initial reading was that of pneumoperitoneum but final reading said no pneumoperitoneum. Elevation of right hemidiaphragm. Atelectasis of the lung bases. Blood cultures negative after 1 day - HOSPITAL COURSE Hospital Course: Criteria for sepsis on the basis of physical exam we strongly suspect she has intermittent aspiration and aspiration pneumonitis. She has a weak cough which is difficult to bring up the phlegm that she is inhaling and swallowing. She is not eating well and appears chronically malnourished with bilateral temporal was ting. Total protein is 4.5, albumin 2.3. She was placed on empiric antibiotic therapy. Levaquin for community-acquired pneumonia a single agent, and Flagyl for possible aspiration. Within 24 hours she responded much more quickly than we thought. She appears to be a chronically ill, weak elderly female. But she tells us that she has been wheelchair-bound or bedbound ever since she got sick with Covid in of this year. She is never really recovered and is lost quite a bit of weight. Then she had the teeth removed with the episode of aspiration pneumonia during the surgery and she is continued to have poor appetite poor dietary habits. Where she used to be able to transfer from wheelchair to a chair, or wheelchair into a car, she now does not even have the strength to roll over by herself in bed. She is requiring a two-person assist. She had completed physical therapy in the outpatient setting and they told her to do her exercises on her own but she has deteriorated since that discharge from PT and OT. The other issue we were seeing was pancytopenia. White cell count was 4.2, hemoglobin 10.6, platelets 103. She states has been a chronic problem over the last year and her family practitioner is evaluating her for possible myelodysplastic syndrome. The patient is also on valproic acid which can cause this scenario especially with an MCV of 106 and as high as 109 in this patient. B12 level is high, and folate level is high so it is not B12 or folic acid deficiency. Overnight, she responded enough that she felt like she wanted to go home the first morning. I convinced her to stay another midnight from the into the and she has had resolution of all of her sepsis criteria. She is now 93% on room air. Has a week, phlegmy cough. Rhonchi in the right midlung but no respiratory distress. Rib cage is visible. No neck JVD. Regular rate and rhythm with a systolic murmur. And abdomen that has hypoactive bowel sounds but nontender and no masses. Bilateral edema of the legs and some edema of the sacrum. Alert and oriented. Weak enough to need 2 person assist to sit up. Very fragile appealing female who looks much older than stated age, with bilateral temporal wasting, a weak voice, a weak cough effort. Never really able to bring up phlegm and swallows it. I am sending her home with home health, PT, OT to be renewed. Her primary care provider, [facility] will follow. Greater than 30 minutes was spent coordinating discharge. I have called in medications to [facility] in [place] on [address]. She needs to complete Levaquin and Flagyl. The [place] been [place] partner and POA called later on saying that [facility] did not have her prescription. I recall to pharmacy but they were already closed. I reassured the patient that she does not need to have her prescriptions tonight. And I have recall them in verbally and left a message for them to be filled tomorrow morning first thing. - ALLERGIES Allergies/Adverse Reactions: Allergies Allergy/AdvReac Type Severity Reaction Status Date / Time alendronate sodium Allergy Unknown Verified 01/09/21 00:01 [From Fosamax] phenobarbital Allergy Unknown Verified 01/09/21 00:01 prednisone Allergy Unknown Verified 01/09/21 00:01 Sulfa (Sulfonamide Allergy Unknown Verified 01/09/21 00:01 Antibiotics) Tetanus Vaccines and Toxoid Allergy Unknown Verified 01/09/21 00:01 - MEDICATIONS Home Medications: Ambulatory Orders Medication Instructions Recorded Confirmed Atorvastatin Calcium 40 mg PO DAILY 01/09/21 01/09/21 Divalproex [Stephanie Humphreys] 250 mg PO DAILY 01/09/21 01/09/21 Levetiracetam [Keppra] 1,000 mg PO BID 01/09/21 01/09/21 Levetiracetam [Keppra] 500 mg PO BID 01/09/21 01/09/21 Levothyroxine Sodium 125 mcg PO DAILY 01/09/21 01/09/21 [Levothyroxine] Mirabegron [Myrbetriq] 50 mg PO DAILY 01/09/21 01/09/21 Solifenacin Succinate [Vesicare] 10 mg PO DAILY 01/09/21 01/09/21 Tolterodine [Detrol LA] 4 mg PO DAILY 01/09/21 01/09/21 levoFLOXacin [Levaquin] 500 mg PO DAILY #10 tablet 01/10/21 metroNIDAZOLE [Flagyl] 500 mg PO Q8H #30 tablet 01/10/21 - LABS Result Diagrams: 01/10/21 05:09 01/10/21 05:09 - SEPSIS Current Stage of Sepsis: Sepsis Possible source of Sepsis: Pulmonary Sepsis Criteria: Recorded Temperature greater than 38.3C or Less than 36C, Recorded Heart Rate greater than 90 bpm, Recorded Respiratory Rate greater than 20, Respiratory: Increasing oxygen requirements, S[employer]INE[employer] AUDIO CONTROL: altered consciousness (unrelated to primary neuro pathology)"
[2021-01-10 13:38] VITALS: BP 121/65
== END 2021-01-10 14:34 | disposition home health service (06) | DRG 871 ==
LOC: ED 23:17 → MS2 01-09 03:04
PROVIDERS: ADMIT Internal Medicine; ATTEND Specialist
DX: J18.9 Pneumonia, unspecified organism (principal); D64.9 Anemia, unspecified; R06.02 Shortness of breath; A41.9 Sepsis, unspecified organism; J96.01 Acute respiratory failure with hypoxia; E78.5 Hyperlipidemia, unspecified; Z20.822 Contact with and (suspected) exposure to COVID-19; J69.0 Pneumonitis due to inhalation of food and vomit; D61.818 Other pancytopenia; E46 Unspecified protein-calorie malnutrition; G40.909 Epilepsy, unspecified, not intractable, without status epilepticus; Z68.25 Body mass index [BMI] 25.0-25.9, adult; E03.9 Hypothyroidism, unspecified; R41.82 Altered mental status, unspecified; R60.0 Localized edema; G89.29 Other chronic pain; M54.9 Dorsalgia, unspecified; M19.90 Unspecified osteoarthritis, unspecified site; K59.09 Other constipation; R32 Unspecified urinary incontinence; Z96.649 Presence of unspecified artificial hip joint; Z96.659 Presence of unspecified artificial knee joint; Z74.01 Bed confinement status; Z98.1 Arthrodesis status; Z79.899 Other long term (current) drug therapy; Z86.16 Personal history of COVID-19; Z86.718 Personal history of other venous thrombosis and embolism
CPT/HCPCS: 36415; 51701; 71045; 74177; 80048; 80053; 81001; 82040; 82247; 82607; 82746; 82803; 83605; 83735; 84075; 84155; 84450; 84460; 85025; 87040; 87631; 93005; 93970; 96365; 96366; 96368; 96375; 99284; 99285; A9270; J3370; J7120; Q9967; 0202U; 87086